=== PATIENT | male | born 1960 | race Caucasian/White ===

== ENCOUNTER 2016-06-18 07:28 | Emergency (ER) | payer BC ==
[~2016-06-18] VITALS: Ht 175.3 cm; Wt 95.0 kg
[~2016-06-18 07:28] MED LIST: 1-ME1LIQ PO; ATOR80TA PO; DIGO0.12 PO; LISI30TA44 PO; METO100T PO; METO25 PO; OXYC1SOL5 PO; RIVA20 PO; ST JTAB PO
[2016-06-18 07:33] VITALS: BP 186/77; PULSE 69; RESP 18; TEMP 98.2; O2SAT 96
--- NOTE | 2016-06-18 07:55 | PD ---
HPI Chief Complaint: Skin Problem Time Seen by Provider: 07:54 Travel History International Travel<30 days: No Contact w/Intl Traveler<30days: No Traveled to known affect area: No History of Present Illness HPI 56-year-old male presents to emergency Department with complaint of a small opening to his mid upper lip that is bleeding for 1 hour. He is on Xarelto. He has tried applying pressure with no relief of symptoms. Denies lightheadedness, dizziness. He says he blew his nose and when wiped his nose and the bleeding started. History of hypertension. No known allergies. Dr. John is primary care provider. No other modifying factors or associated signs and symptoms. PFSH Past Medical History Hx Anticoagulant Therapy: Yes (xarelto) Cancer: No Cardiac Catheterization: Yes (08/28) Cardiovascular Problems: Yes (SD, cabg) High Cholesterol: Yes COPD: Yes (new onset) Coronary Artery Disease: Yes Diminished Hearing: No Endocrine: No Gastrointestinal Disorders: Yes (PROLONGED HICCUPS HX SINCE 03/31) Genitourinary: No Hypertension: Yes Immune Disorder: No Musculoskeletal: No Neurologic: No Psychiatric: No Reproductive: No Respiratory: Yes Myocardial Infarction: Yes (08/28) Sleep Apnea: No Past Surgical History Abdominal Surgery: No Cardiac Surgery: Yes (Cardiac stents 2000) Coronary Stent: Yes (X 29 AUGUST 2000) Ear Surgery: Yes (Lanced right ear drum to drain - tube 20 years ago) Endocrine Surgery: No Eye Surgery: No Genitourinary Surgery: No Gynecologic Surgery: No Oral Surgery: Yes (teeth removal) Thoracic Surgery: No Social History Alcohol Use: Yes (BEER DAILY) Tobacco Use: Yes (1 PPD) Substance Use: Yes (Pot) Allergies-Medications (Allergen,Severity, Reaction): Coded Allergies: No Known Allergies (Verified , 06/18/16) Reported Meds & Prescriptions Reported Meds & Active Scripts Active Review of Systems Except as stated in HPI: all other systems reviewed are Neg Physical Exam Narrative GENERAL: Well-nourished, well-developed male patient, in no acute distress SKIN: Warm and dry. Small approximately 2 mm wound to the mid upper lip with bright red drainage; areas without erythema, edema, signs of infection. HEAD: Atraumatic. Normocephalic. EYES: Pupils equal and round. No scleral icterus. No injection or drainage. ENT: Mucosa pink and moist. Airway patent. NECK: Trachea midline. CARDIOVASCULAR: Regular rate. RESPIRATORY: No accessory muscle use. GASTROINTESTINAL: Rounded. MUSCULOSKELETAL: No obvious deformities. No clubbing. No cyanosis. No edema. NEUROLOGICAL: Awake and alert. Oriented 3. No obvious cranial nerve deficits. Motor grossly within normal limits. Normal speech. PSYCHIATRIC: Appropriate mood and affect; insight and judgment normal. Data Data Last Documented VS Vital Signs Date Time Temp Pulse Resp B/P Pulse Ox O2 Delivery O2 Flow Rate FiO2 06/18/16 07:33 98.2 69 18 186/77 96 Room Air MDM Medical Decision Making Medical Screen Exam Complete: Yes Emergency Medical Condition: Yes Medical Record Reviewed: Yes Differential Diagnosis Bleeding from wound, medical clearance, Narrative Course 56-year-old male that is on Xarelto with a small, approximately 2 mm wound that is continuously bleeding 1 hour without being able to stop the bleeding. Pressure applied in the ER. Woundseal applied. Bleeding controlled and stopped. Patient monitored for rebleeding for approximately 20 minutes without bleeding starting again. Patient verbalizes understanding and agreement with treatment plan. Patient is medically cleared and stable for discharge. Discussed reasons to return to the emergency department. Instructed patient to follow up with primary care provider. Patient agrees with treatment plan. The patients vital signs are stable and the patient is stable for outpatient follow- up and treatment. Patient discharged home, stable and in no acute distress. Diagnosis Primary Impression: Bleeding from wound Referrals: Primary Care Physician Patient Instructions: General Instructions Additional Instructions: Follow-up with primary care provider Return to the emergency department immediately with worsening of symptoms Med/Other Pt SpecificInfo: No Change to Meds, No Meds Exist/No RX given Disposition: DISCHARGE HOME Condition: Stable Kulwinder Cardenasclayton Silverman [facility] Jun 18, 2016 07:55 Additional Instructions: Follow-up with primary care provider Return to the emergency department immediately with worsening of symptoms Med/Other Pt SpecificInfo: No Change to Meds, No Meds Exist/No RX given Disposition: DISCHARGE HOME Condition: Stable Carina Cardenas Herrera [facility] Jun 18, 2016 07:55
== END 2016-06-18 08:48 | disposition home or self-care (01) ==
LOC: NEPB 07:28
DX: R58 Hemorrhage, not elsewhere classified (principal); S00.501A Unspecified superficial injury of lip, initial encounter; I10 Essential (primary) hypertension; E78.00 Pure hypercholesterolemia, unspecified; F17.200 Nicotine dependence, unspecified, uncomplicated; I25.2 Old myocardial infarction; Z79.01 Long term (current) use of anticoagulants; Z86.79 Personal history of other diseases of the circulatory system; Z87.19 Personal history of other diseases of the digestive system; Z87.09 Personal history of other diseases of the respiratory system; X58.XXXA Exposure to other specified factors, initial encounter
CPT/HCPCS: 12011